=== PATIENT | female | born 1955 | race Caucasian/White ===

== ENCOUNTER 2022-10-03 12:14 | Emergency (ER) | payer BC, MEDICARE, OTHER ==
[2022-10-03] MEDS: Aspirin 81 MG Tab.Chew PO ONE (12:22)
[2022-10-03 12:38] LABS: PTT,PARTIAL THROMBOPLSTIN TIME 26.1 SEC (20.0-30.0)
[2022-10-03] MEDS: Alum Hydrox/Mag Hydrox/Simeth 30 ML, Lidocaine 2% 15 ML PO ONE ×2 (12:57)
[2022-10-03 13:02] LABS: CORONAVIRUS COVID-19 NAA NEGATIVE (NEGATIVE); RESPIRATORY SYNCYTIAL VIR NAA NEGATIVE (NEGATIVE)
[2022-10-03] MEDS: Aspirin 81 MG Tab.Chew ONE (13:03)
[2022-10-03 15:51] VITALS: BP 116/62; PULSE 85
[2022-10-03] MEDS: Heparin Sodium 5,000 Units/ML Vial IVPUSH ONE (16:13)
[2022-10-03] MEDS: Heparin Sodium/0.45% NaCl 500 ML IV SCH (16:16)
== END 2022-10-03 16:30 ==
LOC: CC.ED 12:14
DX: I21.4 Non-ST elevation (NSTEMI) myocardial infarction (principal); R77.8 Other specified abnormalities of plasma proteins; Z88.8 Allergy status to other drugs, medicaments and biological substances; Z79.899 Other long term (current) drug therapy; Z79.82 Long term (current) use of aspirin; Z20.822 Contact with and (suspected) exposure to COVID-19
CPT/HCPCS: 0241U; 36415; 71046; 80053; 83690; 83735; 84484; 85025; 85610; 85730; 93005; 93010; 96374; 96375; 99284; 99285-25; A9270-GY; J1644